=== PATIENT | male | born 1960 | race Caucasian/White ===

== ENCOUNTER 2021-02-24 02:20 | Inpatient (IN) | payer OTHER ==
[~2021-02-24] VITALS: Ht 177.8 cm; Wt 67.2 kg
[2021-02-24] VITALS (13 sets, daily range): BP systolic 93–159; BP diastolic 55–88
[2021-02-24] MEDS ORDERED: *PATIENT'S OWN MEDICATION STORAGE XX SCH (10:00)
[2021-02-24] MEDS ORDERED: CARV3.1242 MT (10:21)
[2021-02-24] MEDS ORDERED: FERR325T22 MT (10:21)
[2021-02-24] MEDS ORDERED: NITR0.4T49 SL (10:21)
[2021-02-24] MEDS ORDERED: ASPI-1497 MT (10:21)
[2021-02-24] MEDS ORDERED: GLIP10TA10 MT (10:21)
[2021-02-24] MEDS ORDERED: ATOR40TA70 MT (10:21)
[2021-02-24] MEDS ORDERED: ALOG6.252 PO (10:24)
[2021-02-24] MEDS ORDERED: ISOS20TA57 MT (10:24)
[2021-02-24] MEDS ORDERED: FLUT16SP15 BOTHNSTRLS (10:24)
[2021-02-24] MEDS ORDERED: LORAZEPAM 0.5MG TABLET PO PRN (10:45)
[2021-02-24] MEDS ORDERED: IPRATROPIUM/ALBUTEROL 0.5-3(2.5)MG/3ML NEB HHN PRN (10:45)
[2021-02-24] MEDS ORDERED: DOCUSATE SODIUM 100MG CAPSULE PO PRN (10:45)
[2021-02-24] MEDS ORDERED: HYDROCODONE/ACETAMINOPHEN 5/325MG TABLET PO PRN (10:45)
[2021-02-24] MEDS ORDERED: ACETAMINOPHEN 325MG TABLET PO PRN ×3 (10:45→13:15)
[2021-02-24] MEDS ORDERED: DEXTROSE 50% WATER 50ML SYRINGE IV PRN (11:00)
[2021-02-24 11:08] LABS: BASOPHILS % 0.8 % (0.0-2.0); EOSINOPHILS % 2.7 % (0.0-5.0); HEMATOCRIT. 30.6 % (42.0-52.0); HEMOGLOBIN. 10.2 g/dL (14.0-18.0); LYMPHOCYTES % 16.7 % (20.0-50.0); MEAN CORPUSCULAR HEMOGLOBIN 30.1 pg (28.0-32.0); MEAN CORPUSCULAR VOLUME 90.2 fL (80.0-94.0); MEAN PLATELET VOLUME 8.2 fl (7.4-10.4); MONOCYTES % 6.3 % (2.0-8.0); NEUTROPHILS % 73.5 % (40.0-76.0); PLATELET 186 x1000/uL (130-400); RED BLOOD CELL COUNT 3.39 mill/uL (4.7-6.1); RED CELL DISTRIBUTION WIDTH 14.7 % (11.6-14.6)
[2021-02-24] MEDS ORDERED: CARVEDILOL 3.125 MG TABLET PO SCH (11:15)
[2021-02-24 11:29] LABS: CHLORIDE 102 mEq/L (98-107)
[2021-02-24 11:38] LABS: LDL CHOLESTEROL 47 mg/dL (5-100)
[2021-02-24 11:40] LABS: HDL CHOLESTEROL 40 mg/dL (40-59)
[2021-02-24] MEDS: ASPIRIN 81MG EC TABLET PO SCH (12:05)
[2021-02-24] MEDS: BLOOD SUGAR DIAGNOSTIC STRIP TEST SCH ×3 (12:07→21:12)
[2021-02-24] MEDS: INSULIN LISPRO 100 UNITS/ML SUBCUT SCH ×3 (12:40→21:00)
[2021-02-24] MEDS ORDERED: NITROGLYCERIN 0.4MG TABLET SL SL PRN (13:15)
[2021-02-24 13:20] LABS: PROTHROMBIN TIME 10.7 sec (9.6-11.0)
[2021-02-24] MEDS ORDERED: SODIUM POLYSTYRENE SULFONATE 15 G/60 ML BOT PO NR (14:00)
[2021-02-24] MEDS: AMLODIPINE 5MG TABLET PO SCH (15:18)
[2021-02-24] MEDS: FLUTICASONE PROPIONATE 50MCG/SPRAY BOTTLE BOTHNSTRLS SCH (15:19)
[2021-02-24] MEDS: ISOSORBIDE MONONITRATE 20MG TABLET PO SCH (15:23)
[2021-02-24] MEDS ORDERED: ASCORBIC ACID 500 MG TABLET PO SCH (21:00)
[2021-02-24] MEDS ORDERED: DOCUSATE SODIUM 100MG CAPSULE PO SCH (21:00)
[2021-02-24] MEDS ORDERED: CHLORHEXIDINE GLUCONATE 4% EXTERNAL USE TOP SCH (21:00)
[2021-02-24] MEDS ORDERED: DIPHENHYDRAMINE 25MG CAPSULE PO PRN (21:00)
[2021-02-24] MEDS: ATORVASTATIN CALCIUM 40MG TABLET PO SCH (21:19)
[2021-02-24] MEDS: ALLOPURINOL 300 MG TABLET PO SCH (21:19)
[2021-02-24] MEDS: CARVEDILOL 6.25 MG TABLET PO SCH (22:56)
[2021-02-25] VITALS (11 sets, daily range): BP systolic 140–166; BP diastolic 70–85
[2021-02-25] MEDS: ALLOPURINOL 300 MG TABLET PO SCH (05:30)
[2021-02-25 06:15] LABS: BASOPHILS % 0.7 % (0.0-2.0); EOSINOPHILS % 2.7 % (0.0-5.0); HEMATOCRIT. 28.2 % (42.0-52.0); HEMOGLOBIN. 9.3 g/dL (14.0-18.0); MEAN CORPUSCULAR HEMOGLOBIN 29.7 pg (28.0-32.0); MEAN CORPUSCULAR VOLUME 90.4 fL (80.0-94.0); MEAN PLATELET VOLUME 8.4 fl (7.4-10.4); MONOCYTES % 7.1 % (2.0-8.0); NEUTROPHILS % 72.5 % (40.0-76.0); PLATELET 168 x1000/uL (130-400); RED BLOOD CELL COUNT 3.12 mill/uL (4.7-6.1)
[2021-02-25] MEDS: BLOOD SUGAR DIAGNOSTIC STRIP TEST SCH ×4 (06:45→20:29)
[2021-02-25 07:07] LABS: CHLORIDE 100 mEq/L (98-107)
[2021-02-25 07:14] LABS: PHOSPHORUS 7.3 mg/dL (2.5-4.9)
[2021-02-25] MEDS: INSULIN LISPRO 100 UNITS/ML SUBCUT SCH ×4 (07:20→20:30)
[2021-02-25] MEDS ORDERED: CHLORHEXIDINE GLUCONATE 4% EXTERNAL USE TOP SCH (09:00)
[2021-02-25] MEDS ORDERED: ALLOPURINOL 300 MG TABLET PO SCH (09:00)
[2021-02-25] MEDS: ISOSORBIDE MONONITRATE 20MG TABLET PO SCH (09:05)
[2021-02-25] MEDS: ASPIRIN 81MG EC TABLET PO SCH (09:05)
[2021-02-25] MEDS: AMLODIPINE 5MG TABLET PO SCH (09:05)
[2021-02-25] MEDS: FLUTICASONE PROPIONATE 50MCG/SPRAY BOTTLE BOTHNSTRLS SCH (09:06)
[2021-02-25] MEDS: CARVEDILOL 6.25 MG TABLET PO SCH ×2 (09:06→20:28)
[2021-02-25 15:31] LABS: HEPATITIS B SURFACE ANTIGEN NEGATIVE
[2021-02-25] MEDS: CLONIDINE 0.1MG TABLET PO PRN (18:36)
[2021-02-25] MEDS: ATORVASTATIN CALCIUM 40MG TABLET PO SCH (20:28)
[2021-02-26] VITALS (14 sets, daily range): BP systolic 120–175; BP diastolic 70–92
[2021-02-26] MEDS: BLOOD SUGAR DIAGNOSTIC STRIP TEST SCH ×4 (05:54→21:29)
[2021-02-26] MEDS: INSULIN LISPRO 100 UNITS/ML SUBCUT SCH ×4 (07:20→21:00)
[2021-02-26] MEDS: ASPIRIN 81MG EC TABLET PO SCH (08:51)
[2021-02-26 08:52] LABS: BASOPHILS % 0.8 % (0.0-2.0); EOSINOPHILS % 2.9 % (0.0-5.0); HEMOGLOBIN. 9.9 g/dL (14.0-18.0); LYMPHOCYTES % 15.3 % (20.0-50.0); MEAN CORPUSCULAR HEMOGLOBIN 29.5 pg (28.0-32.0); MEAN CORPUSCULAR VOLUME 89.5 fL (80.0-94.0); MEAN PLATELET VOLUME 8.7 fl (7.4-10.4); MONOCYTES % 6.5 % (2.0-8.0); NEUTROPHILS % 74.5 % (40.0-76.0); PLATELET 167 x1000/uL (130-400); RED BLOOD CELL COUNT 3.35 mill/uL (4.7-6.1); RED CELL DISTRIBUTION WIDTH 14.8 % (11.6-14.6)
[2021-02-26] MEDS: CARVEDILOL 6.25 MG TABLET PO SCH (08:52)
[2021-02-26] MEDS: ISOSORBIDE MONONITRATE 20MG TABLET PO SCH (08:52)
[2021-02-26] MEDS: FLUTICASONE PROPIONATE 50MCG/SPRAY BOTTLE BOTHNSTRLS SCH (08:52)
[2021-02-26] MEDS: AMLODIPINE 5MG TABLET PO SCH (08:52)
[2021-02-26 09:00] LABS: PHOSPHORUS 6.3 mg/dL (2.5-4.9)
[2021-02-26] MEDS ORDERED: CARVEDILOL 3.125 MG TABLET PO SCH (11:00)
[2021-02-26] MEDS ORDERED: MAGNESIUM 2 G PREMIX 50 ML IV ONE (12:00)
[2021-02-26] MEDS ORDERED: EPOETIN ALFA-EPBX 10,000 UNIT/ML VIAL SUBCUT NR (12:00)
[2021-02-26] MEDS ORDERED: CHLORHEXIDINE GLUCONATE 4% EXTERNAL USE TOP SCH ×2 (21:00)
[2021-02-26] MEDS: ATORVASTATIN CALCIUM 40MG TABLET PO SCH (21:39)
[2021-02-26] MEDS: CARVEDILOL 3.125 MG TABLET PO SCH (21:39)
[2021-02-27] VITALS (61 sets, daily range): BP systolic 98–171; BP diastolic 23–77
[2021-02-27] MEDS ORDERED: CHLORHEXIDINE GLUCONATE 4% EXTERNAL USE TOP SCH ×2 (05:00→09:00)
[2021-02-27] MEDS ORDERED: SKIN ADHESIVE 0.7 GM EA TOP ONE (05:29)
[2021-02-27] MEDS ORDERED: BACITRACIN 15GM TUBE TOP ONE (05:29)
[2021-02-27] MEDS ORDERED: DOPAMINE 400MG/250ML PREMIX 250 ML IV ONE (05:30)
[2021-02-27] MEDS ORDERED: THROMBIN (BOVINE) 5000 UNITS/VIAL TOP ONE ×2 (05:30→10:57)
[2021-02-27] MEDS ORDERED: POLYMYXIN B SULFATE 500000 UNITS/VIAL ONE (05:30)
[2021-02-27] MEDS ORDERED: HEPARIN 1000 UNITS/ML 10ML ONE ×2 (05:31→08:41)
[2021-02-27] MEDS ORDERED: NICARDIPINE 50 MG in NS 230 ML IV SCH (06:00)
[2021-02-27] MEDS ORDERED: NOREPINEPHRINE 8 MG in DEXT 5% WATER 242 ML IV SCH (06:00)
[2021-02-27] MEDS ORDERED: AMINOCAPROIC ACID 5,000 MG in SODIUM CHLORIDE 0.9% 230 ML IV SCH (06:00)
[2021-02-27] MEDS ORDERED: CEFAZOLIN 2,000 MG in DEXT 5% WATER 100 ML IV SCH (06:00)
[2021-02-27] MEDS ORDERED: PAPAVERINE HCL 180MG in SODIUM CHLORIDE 0.9% 24ML IV SCH (06:00)
[2021-02-27] MEDS ORDERED: INSULIN REGULAR (DRIP) 100 UNITS in SODIUM CHLORIDE 0.9% 99 ML IV SCH (06:00)
[2021-02-27] MEDS ORDERED: EPINEPHRINE 5 MG in DEXT 5% WATER 245 ML IV SCH (06:00)
[2021-02-27] MEDS ORDERED: DEL NIDO ELECTROLYTE-S(PH 7.4) 1,000 ML IV SCH ×2 (06:00)
[2021-02-27 06:11] LABS: BASOPHILS % 0.8 % (0.0-2.0); EOSINOPHILS % 2.3 % (0.0-5.0); HEMOGLOBIN. 10.5 g/dL (14.0-18.0); MEAN CORPUSCULAR HEMOGLOBIN 29.8 pg (28.0-32.0); MEAN CORPUSCULAR VOLUME 90.6 fL (80.0-94.0); MEAN PLATELET VOLUME 8.3 fl (7.4-10.4); MONOCYTES % 8.5 % (2.0-8.0); NEUTROPHILS % 72.4 % (40.0-76.0); PLATELET 167 x1000/uL (130-400); RED BLOOD CELL COUNT 3.54 mill/uL (4.7-6.1); RED CELL DISTRIBUTION WIDTH 15.1 % (11.6-14.6)
[2021-02-27] MEDS: BLOOD SUGAR DIAGNOSTIC STRIP TEST SCH ×13 (06:18→23:00)
[2021-02-27 06:22] LABS: PHOSPHORUS 5.4 mg/dL (2.5-4.9)
[2021-02-27] MEDS ORDERED: ACETAMINOPHEN 500MG TABLET ONE (06:39)
[2021-02-27] MEDS ORDERED: MIDAZOLAM HCL 2 MG/2 ML VIAL ONE (07:08)
[2021-02-27] MEDS ORDERED: ETOMIDATE 2MG/ML 10ML VIAL IV ONE (07:15)
[2021-02-27] MEDS ORDERED: VECURONIUM BROMIDE 10 MG/VIAL IV ONE (07:15)
[2021-02-27] MEDS ORDERED: FENTANYL CITRATE/PF 50MCG/ML 2ML VIAL ONE ×2 (07:26→08:32)
[2021-02-27] MEDS ORDERED: DESMOPRESSIN ACETATE IV NR (08:00)
[2021-02-27] MEDS ORDERED: SODIUM CHLORIDE 0.9% IV NR (08:00)
[2021-02-27] MEDS ORDERED: ONDANSETRON HCL 4MG/2ML INJ ONE (08:33)
[2021-02-27] MEDS ORDERED: LIDOCAINE HCL/PF 1% 10 MG/ML 5ML VIAL ONE (08:33)
[2021-02-27] MEDS ORDERED: METOCLOPRAMIDE HCL 10MG/2ML VIAL ONE (08:33)
[2021-02-27] MEDS ORDERED: PROPOFOL 10MG/ML 100ML 100 ML IV ONE (08:34)
[2021-02-27] MEDS ORDERED: HEPARIN 10,000 UNITS/ML VIAL ONE ×2 (08:34→08:41)
[2021-02-27] MEDS ORDERED: ROCURONIUM BROMIDE 10MG/ML VIAL 5ML IV ONE (08:34)
[2021-02-27] MEDS ORDERED: MANNITOL 20% (20GM/100ML) BAG 500ML PREMIX IV ONE (08:41)
[2021-02-27] MEDS ORDERED: MAGNESIUM SULFATE 5GM/10ML VIAL IV ONE (08:41)
[2021-02-27] MEDS ORDERED: SODIUM BICARBONATE 8.4% 1 MEQ/ML 50ML SYR IV ONE (08:41)
[2021-02-27] MEDS ORDERED: PHENYLEPHRINE HCL 10 MG/ML 1ML (IV VIAL) IV ONE (08:41)
[2021-02-27] MEDS ORDERED: CALCIUM CHLORIDE 1GM/10ML SYR IV ONE ×2 (08:41→10:20)
[2021-02-27] MEDS ORDERED: ALBUMIN HUMAN 25GM/100ML (25%) IV ONE (08:41)
[2021-02-27] MEDS ORDERED: KCL 10MEQ/50ML PREMIX 100 ML IV PRN (08:45)
[2021-02-27] MEDS ORDERED: KCL 10MEQ/50ML PREMIX 150 ML IV PRN (08:45)
[2021-02-27] MEDS ORDERED: KCL 10MEQ/50ML PREMIX 200 ML IV PRN (08:45)
[2021-02-27] MEDS ORDERED: DEXTROSE 50% WATER 50ML SYRINGE IV PRN ×2 (08:45)
[2021-02-27] MEDS: ASPIRIN 81MG EC TABLET PO SCH (09:00)
[2021-02-27] MEDS: CARVEDILOL 3.125 MG TABLET PO SCH ×2 (09:00→21:00)
[2021-02-27] MEDS ORDERED: AMINOCAPROIC ACID 250 MG/ML 20ML VIAL ONE (09:34)
[2021-02-27] MEDS ORDERED: CEFAZOLIN SODIUM 1000MG/VIAL ONE (10:21)
[2021-02-27] MEDS ORDERED: FENTANYL CITRATE/PF 50MCG/ML 5ML VIAL ONE (11:02)
[2021-02-27] MEDS ORDERED: KETOROLAC 30MG/ML VIAL ONE (11:04)
[2021-02-27] MEDS ORDERED: NEOSTIGMINE METHYLSULFATE 1MG/ML 10 ML VIAL ONE (11:04)
[2021-02-27] MEDS ORDERED: MAGNESIUM 2 G PREMIX 50 ML IV PRN (11:30)
[2021-02-27] MEDS ORDERED: MORPHINE SULFATE 2 MG/ML CPJ (NOT FOR IM USE) IV PRN (11:30)
[2021-02-27] MEDS ORDERED: VANCOMYCIN 1 G PREMIX 200 ML IV NR (11:30)
[2021-02-27] MEDS ORDERED: CALCIUM CHLORIDE 3,000 MG in DEXT 5% WATER 250 ML IV PRN (11:30)
[2021-02-27] MEDS ORDERED: ALBUMIN HUMAN 25GM/100ML (25%) IV PRN (11:30)
[2021-02-27] MEDS ORDERED: ACETAMINOPHEN 325MG TABLET PO PRN (11:30)
[2021-02-27] MEDS ORDERED: MAGNESIUM SULFATE 3 GM in DEXT 5% WATER 100 ML IV PRN (11:30)
[2021-02-27] MEDS ORDERED: ALBUMIN HUMAN 12.5G/250ML (5%) IV PRN (11:30)
[2021-02-27] MEDS ORDERED: SODIUM CHLORIDE 0.9% 500 ML IV PRN (11:30)
[2021-02-27] MEDS ORDERED: MAGNESIUM 1 G PREMIX 100 ML IV PRN (11:30)
[2021-02-27] MEDS ORDERED: KETOROLAC 30MG/ML VIAL IV PRN (11:30)
[2021-02-27] MEDS ORDERED: DOPAMINE 400MG/250ML PREMIX 250 ML IV SCH (11:30)
[2021-02-27] MEDS ORDERED: HYDRALAZINE 20MG/ML VIAL ONE (11:32)
[2021-02-27] MEDS ORDERED: INSULIN REGULAR (DRIP) 100 UNITS in SODIUM CHLORIDE 0.9% 100 ML IV SCH (12:00)
[2021-02-27 12:30] LABS: BG BASE EXCESS -1.5 mmol/L (-2.0-2.0); BG CARBOXYHEMOGLOBIN 0.1 % (0.5-1.5); BG DEOXYHEMOGLOBIN 1.8 % (0.0-5.0); BG FRACTION INSPIRED OXYGEN 45; BG HCO3 ACT 21.7 mmol/L (22.0-26.0); BG METHEMOGLOBIN 0.3 % (0.0-1.5); BG OXYGEN SATURATION 98.2 % (92.0-98.5); BG OXYHEMOGLOBIN 97.8 % (94.0-97.0); BG PCO2 30.4 mmHg (35.0-45.0); BG PH 7.472 (7.350-7.450); BG PO2 148.6 mmHg (75.0-100.0); BG SAMPLE SITE ALINE; BG TOTAL RESPIRATORY RATE 17 b/min; BG VENT MODE VENT - CPAP
[2021-02-27] MEDS: DEXT 5%/0.45% NACL 1000ML 1,000 ML IV SCH (12:36)
[2021-02-27 12:50] LABS: HEMATOCRIT 23.5 % (42.0-52.0); HEMOGLOBIN 7.6 g/dL (14.0-18.0); MEAN CORPUSCULAR HEMOGLOBIN 29.4 pg (28.0-32.0); MEAN CORPUSCULAR VOLUME 90.6 fL (80.0-94.0); PLATELET 126 x1000/uL (130-400); RED BLOOD CELL COUNT 2.59 mill/uL (4.7-6.1); RED CELL DISTRIBUTION WIDTH 14.9 % (11.6-14.6)
[2021-02-27 12:59] LABS: INR 1.1; PROTHROMBIN TIME 12.2 sec (9.6-11.0)
[2021-02-27 13:07] LABS: PHOSPHORUS 3.8 mg/dL (2.5-4.9)
[2021-02-27] MEDS: ONDANSETRON HCL 4MG/2ML INJ IV PRN ×2 (14:48→23:05)
[2021-02-27] MEDS: BACITRACIN 15GM TUBE TOP SCH (14:50)
[2021-02-27] MEDS: IPRATROPIUM/ALBUTEROL 0.5-3(2.5)MG/3ML NEB HHN SCH ×2 (16:48→21:10)
[2021-02-27] MEDS: DOCUSATE SODIUM 100MG CAPSULE PO SCH (16:52)
[2021-02-27] MEDS: CEFAZOLIN 1000MG PREMIX 50 ML IV SCH (17:03)
[2021-02-27 18:10] LABS: HEMATOCRIT 24.9 % (42.0-52.0); HEMOGLOBIN 8.3 g/dL (14.0-18.0); MEAN CORPUSCULAR HEMOGLOBIN 30.1 pg (28.0-32.0); MEAN CORPUSCULAR VOLUME 90.2 fL (80.0-94.0); PLATELET 116 x1000/uL (130-400); RED BLOOD CELL COUNT 2.76 mill/uL (4.7-6.1); RED CELL DISTRIBUTION WIDTH 14.6 % (11.6-14.6)
[2021-02-27 18:14] LABS: INR 1.1; PROTHROMBIN TIME 11.7 sec (9.6-11.0)
[2021-02-27 18:28] LABS: PHOSPHORUS 3.9 mg/dL (2.5-4.9)
[2021-02-27] MEDS: OXYCODONE HCL/ACETAMINOPHEN 5/325MG TABLET PO PRN (18:47)
[2021-02-27] MEDS: ATORVASTATIN CALCIUM 40MG TABLET PO SCH (21:21)
[2021-02-28] VITALS (69 sets, daily range): BP systolic 117–208; BP diastolic 24–108
[2021-02-28] MEDS: IPRATROPIUM/ALBUTEROL 0.5-3(2.5)MG/3ML NEB HHN SCH ×6 (00:24→21:00)
[2021-02-28] MEDS: BLOOD SUGAR DIAGNOSTIC STRIP TEST SCH ×19 (01:00→20:00)
[2021-02-28] MEDS: ONDANSETRON HCL 4MG/2ML INJ IV PRN ×3 (03:33→12:06)
[2021-02-28 04:25] LABS: HEMOGLOBIN. 7.9 g/dL (14.0-18.0); MEAN CORPUSCULAR HEMOGLOBIN 29.8 pg (28.0-32.0); MEAN CORPUSCULAR VOLUME 91.2 fL (80.0-94.0); MEAN PLATELET VOLUME 9.4 fl (7.4-10.4); PLATELET 107 x1000/uL (130-400); RED BLOOD CELL COUNT 2.64 mill/uL (4.7-6.1); RED CELL DISTRIBUTION WIDTH 14.6 % (11.6-14.6)
[2021-02-28 04:35] LABS: PHOSPHORUS 5.1 mg/dL (2.5-4.9)
[2021-02-28] MEDS: OXYCODONE HCL/ACETAMINOPHEN 5/325MG TABLET PO PRN (06:10)
[2021-02-28] MEDS: CEFAZOLIN 1000MG PREMIX 50 ML IV SCH (06:55)
[2021-02-28] MEDS: FAMOTIDINE 20MG/2ML VIAL IV SCH (08:30)
[2021-02-28] MEDS: CARVEDILOL 3.125 MG TABLET PO SCH ×2 (08:52→21:13)
[2021-02-28] MEDS: ASPIRIN 81MG EC TABLET PO SCH (09:03)
[2021-02-28] MEDS: DOCUSATE SODIUM 100MG CAPSULE PO SCH ×2 (09:04→17:00)
[2021-02-28] MEDS: BACITRACIN 15GM TUBE TOP SCH ×2 (10:12→17:00)
[2021-02-28 10:48] LABS: PLATELET ESTIMATE SLIGHTLY DECREASED
[2021-02-28] MEDS: DEXT 5%/0.45% NACL 1000ML 1,000 ML IV SCH (14:11)
[2021-02-28] MEDS ORDERED: NALOXONE HCL 0.4MG/ML VIAL IV PRN (18:45)
[2021-02-28] MEDS ORDERED: EPOETIN ALFA-EPBX 10,000 UNIT/ML VIAL SUBCUT SCH (21:00)
[2021-02-28] MEDS: ATORVASTATIN CALCIUM 40MG TABLET PO SCH (21:13)
[2021-02-28] MEDS: CLONIDINE 0.1MG TABLET PO PRN (21:27)
[2021-02-28] MEDS ORDERED: INSULIN REGULAR (DRIP) 100 UNITS in SODIUM CHLORIDE 0.9% 99 ML IV SCH (23:00)
[2021-03-01] VITALS (88 sets, daily range): BP systolic 79–182; BP diastolic 35–73
[2021-03-01] MEDS: BLOOD SUGAR DIAGNOSTIC STRIP TEST SCH ×9 (00:30→21:00)
[2021-03-01] MEDS: IPRATROPIUM/ALBUTEROL 0.5-3(2.5)MG/3ML NEB HHN SCH ×6 (00:40→21:11)
[2021-03-01] MEDS: ONDANSETRON HCL 4MG/2ML INJ IV PRN (04:36)
[2021-03-01 06:01] LABS: HEMATOCRIT. 26.5 % (42.0-52.0); HEMOGLOBIN. 8.9 g/dL (14.0-18.0); MEAN CORPUSCULAR HEMOGLOBIN 29.7 pg (28.0-32.0); MEAN CORPUSCULAR VOLUME 88.5 fL (80.0-94.0); MEAN PLATELET VOLUME 9.3 fl (7.4-10.4); PLATELET 114 x1000/uL (130-400); RED CELL DISTRIBUTION WIDTH 15.8 % (11.6-14.6)
[2021-03-01 06:19] LABS: PHOSPHORUS 5.1 mg/dL (2.5-4.9)
[2021-03-01] MEDS: ASPIRIN 81MG TABLET PO SCH (08:17)
[2021-03-01] MEDS: FAMOTIDINE 20MG/2ML VIAL IV SCH (08:17)
[2021-03-01] MEDS: POLYETHYLENE GLYCOL 3350 (17GM) 1 DOSE PACK PO SCH (08:18)
[2021-03-01] MEDS: DOCUSATE SODIUM 100MG CAPSULE PO SCH ×2 (08:18→17:21)
[2021-03-01] MEDS: LISINOPRIL 20MG TABLET PO SCH ×3 (08:47→10:22)
[2021-03-01] MEDS ORDERED: CARVEDILOL 6.25 MG TABLET PO SCH (09:00)
[2021-03-01 09:04] LABS: PLATELET ESTIMATE SLIGHTLY DECREASED
[2021-03-01] MEDS: BACITRACIN 15GM TUBE TOP SCH ×2 (10:26→17:21)
[2021-03-01] MEDS ORDERED: DEXTROSE 50% WATER 50ML SYRINGE IV PRN (11:00)
[2021-03-01] MEDS: INSULIN LISPRO 100 UNITS/ML SUBCUT SCH ×3 (13:14→21:00)
[2021-03-01] MEDS: ATORVASTATIN CALCIUM 40MG TABLET PO SCH (22:12)
[2021-03-01] MEDS: CARVEDILOL 6.25 MG TABLET PO SCH (22:15)
[2021-03-01] MEDS: OXYCODONE HCL/ACETAMINOPHEN 5/325MG TABLET PO PRN (22:59)
[2021-03-02] VITALS (11 sets, daily range): BP systolic 112–149; BP diastolic 52–79
[2021-03-02] MEDS: IPRATROPIUM/ALBUTEROL 0.5-3(2.5)MG/3ML NEB HHN SCH ×4 (02:28→15:21)
[2021-03-02] MEDS: BLOOD SUGAR DIAGNOSTIC STRIP TEST SCH ×3 (06:49→17:14)
[2021-03-02 07:33] LABS: BASOPHILS % 0.3 % (0.0-2.0); EOSINOPHILS % 3.3 % (0.0-5.0); LYMPHOCYTES % 9.8 % (20.0-50.0); MEAN CORPUSCULAR HEMOGLOBIN 29.9 pg (28.0-32.0); MEAN CORPUSCULAR VOLUME 89.6 fL (80.0-94.0); MEAN PLATELET VOLUME 9.8 fl (7.4-10.4); MONOCYTES % 9.9 % (2.0-8.0); NEUTROPHILS % 76.7 % (40.0-76.0); PLATELET 156 x1000/uL (130-400); RED BLOOD CELL COUNT 3.01 mill/uL (4.7-6.1); RED CELL DISTRIBUTION WIDTH 15.3 % (11.6-14.6)
[2021-03-02 08:18] LABS: PHOSPHORUS 5.2 mg/dL (2.5-4.9)
[2021-03-02] MEDS: ASPIRIN 81MG TABLET PO SCH (08:46)
[2021-03-02] MEDS: POLYETHYLENE GLYCOL 3350 (17GM) 1 DOSE PACK PO SCH (08:46)
[2021-03-02] MEDS: CARVEDILOL 6.25 MG TABLET PO SCH (08:46)
[2021-03-02] MEDS: LISINOPRIL 20MG TABLET PO SCH ×2 (08:46→09:00)
[2021-03-02] MEDS: DOCUSATE SODIUM 100MG CAPSULE PO SCH ×2 (08:46→17:17)
[2021-03-02] MEDS: INSULIN LISPRO 100 UNITS/ML SUBCUT SCH ×3 (08:47→17:18)
[2021-03-02] MEDS: FAMOTIDINE 20MG/2ML VIAL IV SCH (08:53)
[2021-03-02] MEDS: BACITRACIN 15GM TUBE TOP SCH ×2 (08:54→17:18)
[2021-03-02] MEDS ORDERED: LISI20TA31 PO (10:12)
[2021-03-02] MEDS ORDERED: COR6 PO (10:12)
[2021-03-02] MEDS ORDERED: BO1 TP (10:12)
[2021-03-02] MEDS: OXYCODONE HCL/ACETAMINOPHEN 5/325MG TABLET PO PRN ×2 (13:29→13:41)
[2021-03-02] MEDS ORDERED: HYDR-4001 MT (14:52)
[2021-03-03] MEDS ORDERED: FAMOTIDINE 20MG TABLET PO SCH (09:00)
== END 2021-03-02 19:23 | disposition home or self-care (01) | DRG 166 ==
LOC: 3WST 02:20 → CVICU 02-27 06:48 → 3WST 03-02 00:40
PROVIDERS: ADMIT Internal Medicine; ATTEND Internal Medicine
PROC: 02100Z9 Bypass Coronary Artery, One Artery from Left Internal Mammary, Open Approach (ICD-10-PCS; principal; 2021-02-27)
PROC: 021309W Bypass Coronary Artery, Four or More Arteries from Aorta with Autologous Venous Tissue, Open Approach (ICD-10-PCS; 2021-02-27)
PROC: 06BQ4ZZ Excision of Left Saphenous Vein, Percutaneous Endoscopic Approach (ICD-10-PCS; 2021-02-27)
PROC: 30233N1 Transfusion of Nonautologous Red Blood Cells into Peripheral Vein, Percutaneous Approach (ICD-10-PCS; 2021-02-27)
DX: I25.10 Atherosclerotic heart disease of native coronary artery without angina pectoris (principal); I50.43 Acute on chronic combined systolic (congestive) and diastolic (congestive) heart failure; N18.6 End stage renal disease; D63.8 Anemia in other chronic diseases classified elsewhere; E11.22 Type 2 diabetes mellitus with diabetic chronic kidney disease; I13.2 Hypertensive heart and chronic kidney disease with heart failure and with stage 5 chronic kidney disease, or end stage renal disease; E11.621 Type 2 diabetes mellitus with foot ulcer; E78.5 Hyperlipidemia, unspecified; I25.2 Old myocardial infarction; I25.5 Ischemic cardiomyopathy; Z79.4 Long term (current) use of insulin; Z82.49 Family history of ischemic heart disease and other diseases of the circulatory system; Z83.3 Family history of diabetes mellitus; Z95.1 Presence of aortocoronary bypass graft; Z99.2 Dependence on renal dialysis; L85.3 Xerosis cutis; D64.9 Anemia, unspecified; S90.922A Unspecified superficial injury of left foot, initial encounter; X58.XXXA Exposure to other specified factors, initial encounter; Y93.89 Activity, other specified; Y92.89 Other specified places as the place of occurrence of the external cause; Y99.8 Other external cause status; S90.812A Abrasion, left foot, initial encounter; E11.51 Type 2 diabetes mellitus with diabetic peripheral angiopathy without gangrene; Z20.822 Contact with and (suspected) exposure to COVID-19; L97.422 Non-pressure chronic ulcer of left heel and midfoot with fat layer exposed; I70.201 Unspecified atherosclerosis of native arteries of extremities, right leg; I77.1 Stricture of artery
CPT/HCPCS: 36415; 36600; 71045; 80048; 80053; 80061; 82375; 82805; 82962; 83036; 83735; 84100; 84132; 84443; 84484; 85025; 85027; 85520; 86705; 86709; 86803; 86850; 86900; 86920; 87340; 87426; 93005; 93306; 93880; 93923; 93970; 94003; 94640; 97110; 97116; 97163; 97167; 97535; C1729; C1751; C1758; J0360; J0690; J0885; J1265; J1644; J1815; J1885; J2250; J2270; J2370; J2405; J2440; J2597; J2704; J2710; J2765; J3010; J3370; J3475; J3490; J7040; J7050; J7060; L3908; P9016; P9047; Q0163